=== PATIENT | male | born 1975 | race Caucasian/White ===

== ENCOUNTER 2020-08-22 09:20 | Observation (INO) ==
[2020-08-22] MEDS ORDERED: Aspirin 81 MG TAB.CHEW PO ONE (09:46)
[2020-08-22 10:36] LABS: Basophils % 0.3 %; Eosinophils % 0.1 %; Hematocrit 45.3 % (37.5-50.1); Hemoglobin 15.3 g/dL (12.9-16.9); Immature Granulocytes % 0.3 % (0-4); Lymphocytes # 1.2 K/mcL (0.6-4.6); Mean Corpuscular HGB Conc 33.8 g/dL (31.6-35.5); Mean Corpuscular Hemoglobin 29.7 pg (28.0-33.3); Mean Platelet Volume 9.1 fL (9.4-12.4); Monocytes # 0.7 K/mcL (0.0-1.3); Monocytes % 6.8 %; Neutrophils # 8.1 K/mcL (1.6-8.9); Platelet Count 256 K/mcL (140-400); Red Blood Count 5.15 M/mcL (4.19-5.50); Red Cell Distribution Width 11.9 % (11.5-14.5); Segmented Neutrophils % 80.5 %
[2020-08-22 10:45] LABS: INR 1.1; Prothrombin Time 12.5 Seconds (9.4-12.1)
[2020-08-22 10:47] LABS: Activated Partial Thrombo Time 30.5 Seconds (26.0-36.0)
[2020-08-22 10:59] LABS: BUN/Creatinine Ratio 17 (6-26); Blood Urea Nitrogen 12 mg/dL (6-20); Calcium 10.3 mg/dL (8.6-10.3); Carbon Dioxide 25 mEq/L (23-29); Chloride 105 mEq/L (98-107); Glucose 119 mg/dL (70-105); Osmolality,Calculated 291 (280-300); Potassium 3.4 mEq/L (3.5-5.1); Sodium 140 mEq/L (136-145); Troponin I < 0.03 ng/mL (< 0.04); eGFR For African Americans > 60 (> 60); eGFR For Non-African Americans > 60 (> 60)
[2020-08-22] MEDS: Nitroglycerin 0.4 MG TAB.SUBL SL SCH ×2 (12:24→12:26)
[2020-08-22] MEDS ORDERED: Naloxone 0.4 MG/ML INJ IVP PRN (12:26)
[2020-08-22] MEDS ORDERED: Nitroglycerin 0.4 MG TAB.SUBL SL PRN (12:31)
[2020-08-22] MEDS ORDERED: Perflutren Lipid Microsphere 1.3 ML in 0.9 % Sodium Chloride 8.7 ML IVP PRN (12:31)
[2020-08-22] MEDS ORDERED: lisinopriL 5 MG TABLET PO SCH (13:00)
[2020-08-22 17:29] LABS: Estimated Average Glucose 114 mg/dl
[2020-08-22 17:35] LABS: Chol/HDL Ratio 3.6 (0-4.9); Cholesterol 215 mg/dL (< 200); HDL Cholesterol 59 mg/dL (40-59); LDL Cholesterol,Calculated 140 mg/dL (< 100); Triglycerides 79 mg/dL (< 150); Troponin I < 0.03 ng/mL (< 0.04)
[2020-08-22 17:49] LABS: Thyroid Stimulating Hormone 0.984 mcIU/mL (0.340-5.600)
[2020-08-23 02:04] LABS: BUN/Creatinine Ratio 17 (6-26); Blood Urea Nitrogen 13 mg/dL (6-20); Calcium 9.5 mg/dL (8.6-10.3); Carbon Dioxide 26 mEq/L (23-29); Chloride 104 mEq/L (98-107); Glucose 105 mg/dL (70-105); Osmolality,Calculated 290 (280-300); Potassium 3.3 mEq/L (3.5-5.1); Sodium 140 mEq/L (136-145); eGFR For African Americans > 60 (> 60); eGFR For Non-African Americans > 60 (> 60)
[2020-08-23] MEDS ORDERED: *HR* Enoxaparin 40 MG/0.4 ML SYRINGE SQ SCH (06:00)
[2020-08-23] MEDS ORDERED: Aspirin 81 MG TAB.CHEW PO SCH (09:00)
[2020-08-23 10:40] VITALS: BP 131/84
[2020-08-23] MEDS ORDERED: lisinopriL 5 MG TABLET PO SCH (11:15)
== END 2020-08-23 15:25 | disposition home or self-care (01) ==
LOC: 3BNU 09:20 → EMEROOARM 09:20 → SUATTDRO 11:49 → 3BNU 12:05
PROVIDERS: ADMIT Internal Medicine; ATTEND Student in an Organized Health Care Education/Training Program